=== PATIENT | female | born 1995 | race Two or more races ===

== ENCOUNTER 2018-06-09 07:26 | Inpatient (IN) | payer OTHER ==
[2018-06-09] VITALS (15 sets, daily range): BP systolic 116–151; BP diastolic 57–82
[~2018-06-09] VITALS: Ht 165.1 cm; Wt 91.1 kg
[2018-06-09] MEDS ORDERED: ACET25TA12 PO (07:59)
[2018-06-09] MEDS ORDERED: PRENTAB9 PO (07:59)
--- NOTE | 2018-06-09 10:43 | HPEPDOC ---
Obstetrical History & Physical General Date of Admission Jun 09, 2018 at 10:18 History of Present Illness 23 yo G1 @ 37+3 by LMP([id number]) and 8+3 wk US on [id number]. Presents ambulatory to L&D with c/o ROM @ 0300 this am of clear fluid. Denies DFM, CTX, and Vaginal bleeding. GBS negative. Chief Complaint: LOF, term Information Provided By: Patient Age: 23 : 1 Term: 0 Pre-term: 0 Abortions: 0 Livin Care Care: Good Care Number of Visits: 12 Dating Final EDC: Jun 27, 2018 Final EDC for Daily Update: Jun 27, 2018 Final EDC by: LMP, 1st trimester (US) LMP: Sep 20, 2017 1st Trimester Date: Nov 21, 2017 Weeks + Days: 8.3 Estimated Date of Confinement: Jun 27, 2018 EGA at Admission: 37.3 Antepartum Course Diagnos(e)s 1. elevated 1 hour GTT; 3 hour GTT normal Height (inches): 66 Pre- weight (lbs.): 148 Admission Weight (lbs.): 195 Change in Weight (lbs.): 47 Past Medical History Past Obstetrical History : Past Obstetrical History: [employer] History: History of STD (chlamydia) Past Medical History Medical History 1. DENIES Surgical History: [employer] teeth, Other (cyst removal from hand) Family History Significant Family History: No pertinent family hx Social History Marital Status: Family situation: Spouse/partner home Psychosocial History: No pertinent psych hx * Smoker: non-smoker Alcohol: Denies Drugs: denies Abuse Violence Screening Have you been hit/kicked/slapp: No Imunizations Tdap status: current ([id number]) Influenza Status: current ([id number]) Allergies Coded Allergies: Penicillins (Unverified Allergy, Unknown, 06/09/18) PER PT. STATES SIBLINGS ARE ALLERGIC. PT HAS NEVER RECEIVED. Medications Scheduled No.137/Iron/Folic Acd ( Vitamin Tablet) 1 Each Tablet, 1 TAB PO DAILY Miscellaneous Medications Acetaminophen/Diphenhydramine (Acetaminophen Pm Caplet) 1 Each Tablet, 1 TAB PO Physical Examination Physical Examination GENERAL: A&O x 3 BREAST: . ABDOMEN: Gravid and non-tender to touch FETUS: VTX by SVE, US, and by Yoni. HEART RATE: RRR LUNGS: CTA EXTREMITIES: No edema. No clonus. DTRs +1 [id number] grams Vital Signs/I&O Vital Signs Date Time Temp Pulse Resp B/P (MAP) Pulse Ox O2 Delivery O2 Flow Rate FiO2 06/09/18 08:53 71 124/69 (87) 06/09/18 07:52 98.5 Laboratory Data CBC/BMP [id number]-51.7/13.4/40.5/244 [id number]-75.5/12.5/37.6/240 3 hour GTT- 78/128/113/82 Pertinent Laboratoy Data Blood Type: O+ RBC Antibody Screen: Negative HIV: Negative Hepatitis B: Negative Hepatitis C: Unknown Rapid Plasma Reagin: Nonreactive Rubella: Immune Varicella: Unknown Chlamydia/Gonorrhea: Negative Group B Streptococcus: Negative Quad Screen Test: Negative Cystic Fibrosis: Negative Glucose Tolerance Test: 140 Anatomy Ultrasound Ultrasound Date: Feb 11, 2018 Placenta Location: Posterior Normal Anatomy: Yes Placenta Previa: No Estimated Weight (grams): 356 Steroid Therapy Steroid Therapy: No Vaginal Examination Dilation: 1cm Effacement: 50% Station: -3 Cervical Consistency: Medium Cervical Position: Posterior Presentation: Cephalic presentation Position: Vertex (occiput) Assessment Heart Rate (FHR): 120 Variability: Moderate Accelerations: Positive Decelerations: None Tocometer Contractions: Yes Frequency: regular, other (Q 5-10 min) Assessment/Plan Assessment [23 yo G1 @ 37+3. SROM @ 0300 this am of clear fluid. Denies DFM, CTX, and Vaginal bleeding. GBS negative. Plan Admit and orient. [employer] Flap Inserter and consent. Diet: regular GBS negative Labs and IV per unit protocol. Counseled on Pitocin and IOL LR: Bolus 1000 mL, then at 125 mL/hr. C-S as appropriate. HERRERA BURK CNM Jun 09, 2018 10:43
[2018-06-09 11:34] LABS: HEMATOCRIT 34.4 % (36.0-47.0); HEMOGLOBIN 11.4 g/dl (12.0-15.5); MEAN CORPUSCULAR HEMOGLOBIN 29.1 pg (27.0-33.0); MEAN CORPUSCULAR HGB CONC 33.1 g/dl (32.0-36.5); MEAN CORPUSCULAR VOLUME 87.8 fl (80.0-96.0); PLATELET COUNT, AUTOMATED 270 10^3/uL (150-450); RED BLOOD COUNT 3.92 10^6/uL (4.00-5.40); WHITE BLOOD COUNT 13.1 10^3/uL (4.0-10.0)
[2018-06-09] MEDS ORDERED: LACTATED RINGER'S 1000 ML IV STA (11:50)
[2018-06-09] MEDS: LR 1,000 ML IV SCH ×3 (12:10→23:30)
--- NOTE | 2018-06-09 13:58 | IPNPDOC ---
Text Note Date of Service The patient was seen on 06/09/18. NOTE [id number] @ 1351 23 yo G1 @ 37+3. SROM @ 0300 this am of clear fluid. S: Ambulated from bathroom to bed without difficulty. Notes some CTXs. Spouse is at bedside O: VS- WNL, afebrile FHR- 120, moderate variability, + accels, no decels CTXs- irregular, lasting 60-120 sec, palpated as mild, resting tone palpated as soft SVE- 1/50/-3, soft/mid/vtx cook balloon place with 60/60 ml of NS SROM x 11 hours, fluid remains clear A: 23 you G1 @ 37+3 SROM x 11 hours with clear fluid, CAT I FHR tracing, no cervical change noted P: Continue to monitor and assess, RN to reassess balloon Q hour, Provider to assess balloon in 6 hours or prn VS,Fishbone, I+O VS, Fishbone, I+O Laboratory Tests 06/09/18 11:21 Red Blood Count 3.92 L, Mean Corpuscular Volume 87.8, Mean Corpuscular Hemoglobin 29.1, Mean Corpuscular Hemoglobin Concent 33.1, Red Cell Distribution Width 13.0 Vital Signs Date Time Temp Pulse Resp B/P (MAP) Pulse Ox O2 Delivery O2 Flow Rate FiO2 06/09/18 08:53 71 124/69 (87) 06/09/18 07:52 98.5 HERRERA BURK CNM Jun 09, 2018 13:58
[2018-06-09] MEDS ORDERED: OXYTOCIN DRIP 30 UNITS in APPROPRIATE DILUENT 1 EA IV SCH (18:00)
--- NOTE | 2018-06-09 18:00 | IPNPDOC ---
Text Note Date of Service The patient was seen on 06/09/18. NOTE [id number] @ 1752 23 yo G1 @ 37+3. SROM @ 0300 this am of clear fluid. S: Notes increasing frequency and intensity of CTXs. Spouse is at bedside O: VS- WNL, afebrile FHR- 110, moderate variability, + accels, intermittent late/variable decels CTXs- irregular, Q 3-8 min, lasting 60-120 sec, palpated as mild-mod, resting tone palpated as soft SVE-deferred cook balloon out @ 1515 SROM x 15 hours, fluid remains clear A: 23 you G1 @ 37+3 SROM x 15 hours with clear fluid, CAT I-II FHR tracing, no cervical change noted P: Continue to monitor and assess, initiate pitocin per unit protocol. VS,Fishbone, I+O VS, Fishbone, I+O Laboratory Tests 06/09/18 11:21 Red Blood Count 3.92 L, Mean Corpuscular Volume 87.8, Mean Corpuscular Hemoglobin 29.1, Mean Corpuscular Hemoglobin Concent 33.1, Red Cell Distribution Width 13.0 Vital Signs Date Time Temp Pulse Resp B/P (MAP) Pulse Ox O2 Delivery O2 Flow Rate FiO2 06/09/18 15:07 75 16 128/69 (88) 06/09/18 15:07 97.6 HERRERA BURK CNM Jun 09, 2018 18:00
[2018-06-09] MEDS ORDERED: FENTANYL 2MCG/ML ROPIVACAINE 0.2% IN 0.9% NACL 100ML IVBAG As Ordered ONE (20:59)
--- NOTE | 2018-06-09 21:48 | IPNPDOC ---
Text Note Date of Service The patient was seen on 06/09/18. NOTE [id number] @ 2100 23 yo G1 @ 37+3. SROM @ 0300 this am of clear fluid. S: Notes increasing intensity of CTXs. Requesting epidural. Spouse is at bedside O: VS- WNL, afebrile FHR- 130, moderate variability, + accels, early decelerations CTXs- irregular, Q 3-5 min, lasting 60-120 sec, palpated as mod, resting tone palpated as soft SVE-6/70/-2, soft/mid/vtx pitocin @ 2 mU/min SROM x 18 hours, fluid remains clear A: 23 you G1 @ 37+3 SROM x 18 hours with clear fluid, CAT I FHR tracing, cervical change noted P: Continue to monitor and assess, continue to titrate pitocin per unit protocol, epidural now. VS,Fishbone, I+O VS, Fishbone, I+O Laboratory Tests 06/09/18 11:21 Red Blood Count 3.92 L, Mean Corpuscular Volume 87.8, Mean Corpuscular Hemoglobin 29.1, Mean Corpuscular Hemoglobin Concent 33.1, Red Cell Distribution Width 13.0 Vital Signs Date Time Temp Pulse Resp B/P (MAP) Pulse Ox O2 Delivery O2 Flow Rate FiO2 06/09/18 19:09 81 16 128/60 (82) 06/09/18 17:57 98.0 HERRERA BURK CNM Jun 09, 2018 21:48
[2018-06-10] MEDS ORDERED: OXYTOCIN DRIP 30 UNITS in APPROPRIATE DILUENT 1 EA IV SCH (00:33)
--- NOTE | 2018-06-10 00:40 | DNPDOC ---
[facility] Delivery Note Delivery Note DATE OF DELIVERY: [id number] @ 0007 PREDELIVERY DIAGNOSIS: 37+4 weeks' gestation and labor. POST DELIVERY DIAGNOSIS: Delivered. PROCEDURE: ASSEMBLER PING PONG TABLE: Herrrea Burk CNM ANESTHESIA: epidural ESTIMATED BLOOD LOSS: 300 mL. FINDINGS: 6 pound 5 ounce male , 2870 grams, Score 9/9, nuchal cord- none. DELIVERY SUMMARY: Patient is a 23 yo G1 now P1001 who was admitted to labor for SROM of clear fluid on [id number]. Progressed to c/c/+2 with epidural infusing, pitocin infusing and strong desire to push. Delivery was via of a viable male infant to a clean field; Infant presented OA with bandalero cord noted, easily delivered through. Anterior shoulder(left) delivered with mild downward traction, then the posterior shoulder delivered with mild upward traction; remainder of corpus delivered spontaneously. Infant placed [id number] on mother's chest. Delayed cord clamping x 3 min, then cord clamped x 2 and cut by provider. Child had vigorous cry. Placenta delivered intact with 3 vessel cord approx 5 min later. Fundal massage applied, pitocin bolus initiated. 2MLL noted and repaired in usual fashion with 3-0 vicryl. Excellent hemostasis noted. Mother and infant bonding well and stable in delivery room. Anticipate routine PP course EBL-300 ml -9/9 HERRERA BURK CNM Jun 10, 2018 00:40
[2018-06-10] MEDS ORDERED: PROMETHAZINE 25 MG TAB PO PRN (00:45)
[2018-06-10] MEDS ORDERED: MOM 30ML SUSPENSION UDC PO PRN (00:45)
[2018-06-10] MEDS ORDERED: ACETAMINOPHEN 500 MG TAB PO PRN (00:45)
[2018-06-10] MEDS ORDERED: MEASLES,MUMPS,RUBELLA VACCINE INJ (MMR-II) (90707) SC SCH (00:45)
[2018-06-10] MEDS ORDERED: RHOGAM 300 MCG (1500 IU) INJ (J2790) IM SCH (00:45)
[2018-06-10] MEDS ORDERED: ONDANSETRON 4MG/2ML VIAL (J2405) IV PRN ×2 (00:45→01:15)
[2018-06-10] MEDS ORDERED: DOCUSATE SODIUM 100 MG CAP PO PRN (00:45)
[2018-06-10] MEDS ORDERED: REFRIGERATOR IV KEYS XX PRN (01:15)
[2018-06-10] MEDS ORDERED: LACTATED RINGER'S 1000 ML IV PRN (01:15)
[2018-06-10] MEDS ORDERED: FENTANYL/ROPIVACAINE/NACL BAG 100 ML EPIDURAL SCH (01:15)
[2018-06-10] MEDS ORDERED: NALOXONE INJ 0.4 MG/1 ML VIAL (J2310) IV PRN (01:15)
[2018-06-10] MEDS ORDERED: ePHEDrine SULFATE 25 MG/5 ML(5MG/ML) SYRINGE IV PRN (01:15)
[2018-06-10] MEDS ORDERED: EPIDURAL/PCA KEYS XX PRN (01:15)
[2018-06-10] MEDS ORDERED: EPIDURAL COMMENT XX SCH (01:15)
[2018-06-10] MEDS ORDERED: diphenhydrAMINE INJ 50MG/ML VIAL (J1200) IV PRN (01:15)
[2018-06-10 02:25] VITALS: BP 132/62
[2018-06-10] MEDS: IBUPROFEN 800 MG TAB PO PRN ×2 (05:49→14:25)
[2018-06-10 06:00] VITALS: BP 124/74
[2018-06-10] MEDS: PRENATAL VITAMINS CHEWABLE TABLET PO SCH (09:53)
[2018-06-10 18:14] VITALS: BP 124/73
[2018-06-11] MEDS: IBUPROFEN 800 MG TAB PO PRN ×2 (03:37→20:28)
[2018-06-11 05:21] VITALS: BP 128/72
--- NOTE | 2018-06-11 06:49 | IPNPDOC ---
Text Note Date of Service The patient was seen on 06/11/18. NOTE PPD1 States feeling well, pain controlled with prescribed meds. Baby bonding and feeding well. No heavy VB. Lochia slowing. Ambulatory. Tolerating PO without issues. Voiding spont. No CP/LP/SOB. VSSAF NAD A&O LE no C/C/E Ut at U-2, firm a/p: Doing well. Cont routine care. D/C likely tomorrow. Sessions VS,Olinda, I+O VSOlinda, I+O Vital Signs Date Time Temp Pulse Resp B/P (MAP) Pulse Ox O2 Delivery O2 Flow Rate FiO2 06/11/18 05:21 98.4 82 17 128/72 (90) 06/10/18 06:00 99 SESSIONS,OLIVER Barbosa MD Jun 11, 2018 06:49
[2018-06-11] MEDS: PRENATAL VITAMINS CHEWABLE TABLET PO SCH (08:19)
[2018-06-11 18:11] VITALS: BP 136/68
[2018-06-11] MEDS: DIBUCAINE 1% OINTMENT 30GM TOP PRN (20:28)
[2018-06-12 06:00] VITALS: BP 129/77
[2018-06-12] MEDS: IBUPROFEN 800 MG TAB PO PRN (06:38)
[2018-06-12] MEDS: PRENATAL VITAMINS CHEWABLE TABLET PO SCH (08:03)
[2018-06-12] MEDS ORDERED: MAPA500T2 PO (11:03)
[2018-06-12] MEDS ORDERED: IBUP-1114 PO (11:03)
[2018-06-12] MEDS: DIBUCAINE 1% OINTMENT 30GM TOP PRN (11:55)
--- NOTE | 2018-06-12 12:27 | IPNPDOC ---
Progress Note Date of Service: Jun 12, 2018 Day#: 2 Progress Note PPD 2 SUBJECT: Essence is a 23yo [id number] s/p uncomplicated at 37wk after presenting with SROM, delivering at 00:07 on 06/10 with a 2mll and repair, doing well day # 2. She has been ambulating, voiding spontaneously without issue and tolerating regular diet. Breast feeding without issue. Reports lochia is like a normal period. No f/c/n/v/CP/SOB. OBJECTIVE: VITAL SIGNS: Within normal limits, normotensive, afebrile. Alert and oriented times three. Abdomen: Fundus firm at U-2. Soft, NTTP. Extremities: no pain with palpation of calves ASSESSMENT: Essence is a 23yo [id number] s/p uncomplicated at 37wk after presenting with SROM, delivering at 00:07 on 06/10 with a 2mll and repair, doing well day # 2. Vitals within normal limits, afebrile, hemodynamically stable with no evidence of infection. PLAN: 1. Discharge to home today. 2. Tylenol and Motrin for pain. Lanolin. 3. Encourage breast feeding and ambulation. 4. Undecided on contraception 5. Routine PP visit in 6 weeks in clinic. 6. Discussed return precautions at length. Dr. Cinda Trujillo MD VS, I&O, 24H, Fishbone Vital Signs/I&O Vital Signs Date Time Temp Pulse Resp B/P (MAP) Pulse Ox O2 Delivery O2 Flow Rate FiO2 06/12/18 06:00 97.6 69 18 129/77 (94) 06/10/18 06:00 99 Cinda Trujillo MD Jun 12, 2018 12:27
== END 2018-06-12 12:09 | disposition home or self-care (01) | DRG 807 ==
LOC: M LDO 07:26 → M LDI 10:18 → M OBS 06-10 02:35
PROVIDERS: ADMIT Midwife; ATTEND Midwife
PROC: 10E0XZZ Delivery of Products of Conception, External Approach (ICD-10-PCS; principal; 2018-06-10)
PROC: 0KQM0ZZ Repair Perineum Muscle, Open Approach (ICD-10-PCS; 2018-06-10)
DX: O69.89X0 Labor and delivery complicated by other cord complications, not applicable or unspecified (principal); Z37.0 Single live birth; Z3A.37 37 weeks gestation of pregnancy; O70.1 Second degree perineal laceration during delivery